=== PATIENT | male | born 1985 | race Caucasian/White ===

== ENCOUNTER → 2024-06-12 | Outpatient (CLI) | payer OTHER ==
--- NOTE | 2024-06-12 18:19 | XR ---
EXAMINATION TYPE: XR lumbosacral spine min 4V, XR thoracic spine complete DATE OF EXAM: 06/12/2024 6:09 PM COMPARISON: None. CLINICAL INDICATION: Male, 39 years old with history of LOW BACK PAIN M54.50; [facility] TECHNIQUE: XR lumbosacral spine min 4V, XR thoracic spine complete - Frontal, lateral , bilateral obl ique and coned in L5-S1 lateral views of the spine. FINDINGS: Thoracic spine: Thoracic spine vertebral body heights appear grossly maintained. Multilevel intervertebral disc space loss and anterior osteophyte formation. Otherwise, thoracic spine alignment appears maintained. No a cute fracture or traumatic subluxation. Partially visualized lungs demonstrate no acute pathology. Lumbosacral spine: 5 lumbar type vertebral bodies are present in the purposes of this examination. No acute fracture or traumatic subluxation. Minimal intervertebral disc space loss at L1-L2 and L5-S1. Multilevel facet ar thropathy, most advanced at L4-5 and L5-S1. No evidence of spondylolysis or significant spondylolisth esis. IMPRESSION: 1. No acute osseous abnormality. 2. 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 [facility], , 06/12/2024 6:17 PM
== END | disposition home or self-care (01) ==
LOC: RADXRMAIN 17:40
PROVIDERS: ATTEND Family Medicine
DX: M51.35 Other intervertebral disc degeneration, thoracolumbar region (principal); M47.815 Spondylosis without myelopathy or radiculopathy, thoracolumbar region
CPT/HCPCS: 72072; 72110